=== PATIENT | female | born 1975 ===

== ENCOUNTER 2017-12-27 06:36 | Day surgery (SDC) | payer OTHER ==
[2017-12-18 09:16] VITALS: BMI 23.3
[2017-12-27] MEDS ORDERED: HYDROmorphone 0.5 mg/0.5 ml ISec IVP PRN (09:22)
[2017-12-27] MEDS ORDERED: Bupivacaine HCl 0.25% PF (10 ml) Inj ONE (10:03)
[2017-12-27] MEDS ORDERED: Propofol 10 mg/ml Inj (20 ML) ONE (10:07)
[2017-12-27] MEDS ORDERED: Midazolam 2 MG/2 ML VIAL ONE (10:07)
[2017-12-27] MEDS ORDERED: Neostigmine Methylsulfate 3mg/3ml Syringe IV ONE ×2 (11:14→11:45)
[2017-12-27] MEDS: HYDROmorphone 0.5 mg/0.5 ml ISec IVP PRN ×2 (12:55→13:12)
[2017-12-27] MEDS ORDERED: Lactated Ringer's 1,000 ML IV ONE (13:30)
[2017-12-27 14:47] VITALS: RESP 18
[2017-12-27 16:47] VITALS: BP 100/70; PULSE 90; TEMP 97; O2SAT 99
--- NOTE | 2017-12-27 17:13 | PCM.SURG1 ---
Surgeon's Initial Post Op Note - Surgeon's Notes Surgeon: Edith Mcclain MD Physics And Astronomy Professor: Gordy Bucio< Type of Anesthesia: General Endo, General LMA Pre-Operative Diagnosis: Pelvic pain, left ovarian cyst Operative Findings: 10 weke size anterverted uteurs, normal right tube and ovary bilaterallly, nelarged left ovary adherent to tube, with lysis of adhesins of omental adhesins to anteioer abodmnal wall and to uters and to left adnexa. Dr Gordy Bucio was surigcla assistna and presetn fo rentire case and esential in gaining laparascopic entry, establishign pneumoperitonum, removing cyst with unable to achieve adequate hemoatsis, with left tube and ovary removed , omental adhesins rmeoved prior to adnexa surger due to poor visulatizain using ligasure device. pelvic washign obtained. 45 minutes sepnt lysisng adhesions, while remained of or time spent on ovarian cyst. normal appearing right tube and ovary Post-Operative Diagnosis: Operative laparscopy, pelvic washings, left salphinogopehrectomy, lysis of adhesions Operation Performed: Lapararsopyc left salpingoopherectomy, lysis of omenal adhesinal, periontal washings Specimen/Specimens Removed: left fallopoian tube and ovary Estimated Blood Loss: EBL {In ML}: 50 Blood Products Given: N/A Drains Used: No Drains Date of Surgery/Procedure: 12/27/17 Time of Surgery/Procedure: 10:00
--- NOTE | 2017-12-28 04:21 | OP ---
PROCEDURE DATE: 12/27/2017 SURGEON: Dr. Edith Mcclain PAIN MEDICINE PHYSICIAN: Gordy Bucio MD TYPE OF ANESTHESIA: General endotracheal. PREOPERATIVE DIAGNOSIS: Pelvic pain, left ovarian cyst. POSTOPERATIVE DIAGNOSIS: Pelvic pain, left ovarian cyst. OPERATIVE FINDINGS: 10-week sized anteverted uterus, normal-appearing tubes and ovaries bilaterally, enlarged left ovarian tube with lysis of adhesions and omental adhesions to anterior abdominal wall, to uterus, and to left adnexa. Dr. Gordy Bucio was surgical nurse practitioner who was present for the entire case, essentially in gaining entry laparoscopically, establishing pneumoperitoneum, removing cyst , was unable to achieve adequate hemostasis, with left tube and ovary removed, omental washings obtained. Omental adhesions removed prior to adnexa surgery due to poor visualization using LigaSure device. Pelvic washings obtained, 45 minutes spent in lysis of adhesions while remainder of time spent on ovarian cyst, normal appearing tubes and ovaries. OPERATIONS PERFORMED: Operative laparoscopy, pelvic washings, left salpingo-oophorectomy, lysis of adhesions SPECIMEN REMOVED: Left fallopian tubes and ovaries, pelvic washings. ESTIMATED BLOOD LOSS: 50 mL. BLOOD PRODUCTS: None. DESCRIPTION OF PROCEDURE: The patient was taken to the operating where she was given general anesthesia. Once found to be adequate, she was placed on the operating table in the dorsal supine position with legs supported using stirrups. The patient was then prepped and draped in the usual sterile fashion. A time-out confirmed correct patient and correct procedure. Bimanual exam was performed with the above mentioned findings. A Rodriguez catheter was then inserted into the urethra to drain the bladder. Following this, a Solis retractor was placed in the anterior and posterior fornix of the vagina, and the cervix was adequately visualized. A single-tooth tenaculum was placed on the anterior lip of the cervix. The uterus was then sounded to 8 cm. Following this, cervix was sequentially dilated. A HUMI uterine manipulator was then inserted and insufflated with 8 mL of air. Following this, a single-tooth tenaculum was removed. There was good hemostasis at the tenaculum puncture site. Following this, the surgeon then re-gloved, and attention was then turned to the abdomen in which 0.25 Marcaine was administered infraumbilically in a 5 mm skin incision. The skin was then tented up with 2 towel clamps, and after the skin incision was obtained, the Veress needle was then inserted. Confirmation was then placed with a normal saline test. Following this, the abdomen was then insufflated with CO2 with pressure of 15 mmHg, and following this, the Veress needle was then removed, and a 5-mm laparoscope was then inserted under direct visualization. There was good confirmation and placement within the peritoneal cavity, and the above-mentioned findings as noted. Following this, an additional 5-mm port was then inserted in the left lower quadrant after giving local under direct visualization, and a 12 mm port in the right lower quadrant. Following this, the adhesions of the omentum to the anterior abdomen was carefully removed using the 5 mm LigaSure device. The peritoneal washings were obtained prior to doing this. After this, the ovary was then attempted to be carefully dissected using careful blunt dissection with a peanut. However, there was bleeding noted, hemostasis unable to be obtained. There was dense adhesions of the ovary noted to the tube and also omental adhesions noted which were carefully removed. The ovary was then removed with the left fallopian tube which was adherent, and sent to pathology on [facility] using LigaSure device. There was good hemostasis noted. The abdomen was then irrigated and there was good hemostasis noted. The specimen was then removed using an EndoCatch bag through the 12 mm port. The cyst appeared abnormal and enlarged. Following this, the abdomen was irrigated, and there was good hemostasis noted at all operative sites including lysis of adhesions. The abdomen was then desufflated and the port removed under direct visualization. The 12 mm fascial and skin incision was closed using two S-retractors, and the fascia was reapproximated and closed with UR6 needle. The skin incisions were all closed with 4-0 Monocryl in a running subcuticular fashion. The HUMI manipulator and Rodriguez were then removed. At the end of the procedure, all needles, sponge, and instrument counts were noted to be correct x2. The patient tolerated the procedure well and was transferred to the recovery room in stable condition. Edith Mcclain MD
== END 2017-12-27 17:38 | disposition home or self-care (01) ==
LOC: C.SDS 06:36
PROVIDERS: ATTEND Obstetrics & Gynecology
DX: N83.202 Unspecified ovarian cyst, left side (principal); R10.2 Pelvic and perineal pain; K66.0 Peritoneal adhesions (postprocedural) (postinfection)
CPT/HCPCS: 36415; 58661; 86850; 86900; 88305; J1170; J2250; J2704; J2710; J3010; J7120